=== PATIENT | male | born 1985 | race Caucasian/White ===

== ENCOUNTER 2016-07-04 09:39 | Emergency (ER) | payer OTHER | END 2016-07-04 11:53 | disposition home or self-care (01) | LOC: ER 09:39 | DX: S05.02XA Injury of conjunctiva and corneal abrasion without foreign body, left eye, initial encounter (principal); J45.909 Unspecified asthma, uncomplicated; F17.210 Nicotine dependence, cigarettes, uncomplicated; Z88.5 Allergy status to narcotic agent; Z91.012 Allergy to eggs; Z91.018 Allergy to other foods; Z23 Encounter for immunization; X58.XXXA Exposure to other specified factors, initial encounter | CPT/HCPCS: 90471 ==